=== PATIENT | male | born 1980 | race Caucasian/White ===

== ENCOUNTER 2017-01-27 01:48 | Inpatient (IN) | payer OTHER ==
[~2017-01-27] VITALS: Ht 175.3 cm; Wt 93.1 kg
--- NOTE | 2017-01-27 02:07 | NUR ---
PT PRESENTS TO ED WITH C/O BUQ ABD CRAMPING X4 DAYS. PT REPORTS NAUSEA, DENIES V/D/C. PT REPORTS PAIN WORSENING TODAY. PT DENIES ANY FEVERS. RESPIRATIONS EVEN AND UNLABORED. NO ACUTE DISTRESS NOTED. BED IN LOW POSITION. CALL LIGHT WITHIN REACH.
[2017-01-27 02:20] LABS: BASOPHIL % 0.3 % (0-2); PLATELET COUNT 286 x10^3mcL (130-400)
[2017-01-27 02:33] LABS: CALCIUM 9.1 mg/dL (8.5-10.1); CARBON DIOXIDE 25.6 mmol/L (21-32); CHLORIDE SERUM 101 mmol/L (98-107); CREATININE SERUM 0.9 mg/dL (0.7-1.3); GFR1 > 60 mL/min; GLUCOSE SERUM 118 mg/dL (74-106); POTASSIUM SERUM 3.8 mmol/L (3.5-5.1); SODIUM SERUM 137 mmol/L (136-145)
[2017-01-27 02:38] LABS: ALBUMIN 3.8 g/dL (3.4-5.0); ALKALINE PHOSPHATASE 95 U/L (46-116); ALT/SGPT 32 U/L (16-63); AMYLASE 41 U/L (25-115); AST/SGOT 20 U/L (15-37); BILIRUBIN TOTAL 0.58 mg/dL (0.20-1.00); LIPASE 90 IU/L (73-393); TOTAL PROTEIN, SERUM 7.8 g/dL (6.4-8.2)
--- NOTE | 2017-01-27 05:00 | NUR ---
PER DR. PERLA, NO BLOOD CULTURES ORDERED.
--- NOTE | 2017-01-27 05:43 | NUR ---
PT SLEEPING IN BED, EASILY AROUSABLE TO VERBAL STIMULI. RESPIRATIONS EVEN AND UNLABORED. NO ACUTE DISTRESS NOTED. BED IN LOW POSITION. CALL LIGHT WITHIN REACH.
--- NOTE | 2017-01-27 06:05 | NUR ---
REPORT GIVEN TO JONAH NAVAS.
[2017-01-27 06:30] LABS: PHOSPHOROUS 4.3 mg/dL (2.5-4.9)
--- NOTE | 2017-01-27 06:31 | NUR ---
RECEIVED PATIENT FROM ER AWAKE, ALERT AND ORIENTED WITH NO C/O PAIN THIS TIME, PT MEDICATED EARLIER IN ER WITH MORPHINE 2MG IVP. 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 KEPT IN COMFORT AND ORIENTED TO ROOM AND DEVICES. TELE# 22,SB ON MONITOR. WILL ENDORSE CONTINOUS CARE TO INCOMING AM NURSE.
[2017-01-27 07:44] VITALS: BP 134/77
--- NOTE | 2017-01-27 08:00 | NUR ---
PT A/O X4, DEMIES SOB OR CP. PT STATES PAIN IS 7/10 TO ABD WILL MEDICATE ACCORDING TO MAR. BRP, STRONG STEADY GAIT. BOWEL TONES ACTIVE SKIN CDI. IV PATENT. PT ORIENTED TO ROOM, CALL LIGHT PLACED IN REACH.
--- NOTE | 2017-01-27 08:30 | NUR ---
PT OFF THE FLOOR IN PROCEDURE.
[2017-01-27 08:59] LABS: T3 TOTAL 1.45 ng/mL
--- NOTE | 2017-01-27 10:50 | NUR ---
PT OFF THE FLOOR IN PROCEDURE.
[2017-01-27 11:08] LABS: CHOLESTEROL/HDL RATIO 4.4
[2017-01-27 11:16] LABS: FREE T4 1.15 ng/dL (0.76-1.46); FREE THYROXINE INDEX 3.4 ug/dL (1.4-4.5); T4(THYROXINE) 9.7 ug/dL (4.7-13.3)
--- NOTE | 2017-01-27 11:36 | NUR ---
PT BACK ON FLOOR VS STABLE, PT STATES PAIN IS AT A TOLERABLE LEVEL AT THIS TIME. WILL CONTINUE TO MONITOR. DRESSIGN CDI.
--- NOTE | 2017-01-27 12:15 | NUR ---
PT RESTIGN IN BED DENIES PAIN AT THIS TIME, NO SIGNS OF DISTRESS CALL LIGHT IN REACH WILL CONTINUE TO MONITOR.
[2017-01-27 13:34] VITALS: BP 114/70
--- NOTE | 2017-01-27 15:28 | NUR ---
PT RESTING IN BED VS STABLE, DRESSINGS CDI, FAMILY AT BEDISDE, CALL LIGHT IN REACH WILL CONTINUE TO MONITOR.
[2017-01-27 17:31] VITALS: BP 114/68
--- NOTE | 2017-01-27 19:15 | NUR ---
PT A/O X4, ON TELE #22, NSR, DENIES CHEST PAIN AT THIS TIME. PULSES PALPABLE, NO EDEMA NOTED. SCDs IN PLACE. BREATHING IS EVEN AND UNLABORED, LUNG SOUNDS ARE CLEAR, DENIES SOB. ABD IS SOFT AND FLAT. PT REPORTS TO PASSING GAS, BUT DENIES HAVING A BM TODAY. BRP. SKIN IS INTACT WITH THREE BANDAIDS NOTED TO ABD. DRIED BLOOD NOTED TO ONE OF THE BANDAIDS, NO ACTIVE BLEEDING OBSERVED. PT REPORTS THE PAIN MEDICINE IS EFFECT; ADMITS TO MINIMAL, BUT TOLERABLE PAIN. IVF INFUSING WELL TO LAC. BED IN LOWEST SETTING, SIDE RAILS UP X2, CALL LIGHT WITHIN REACH. WILL CONTINUE TO MONITOR.
[2017-01-27 20:36] LABS: microscopic required? NO
[2017-01-27 20:41] LABS: urine erythrocyte NEGATIVE (NEGATIVE)
[2017-01-27 21:49] VITALS: BP 104/69
--- NOTE | 2017-01-28 01:10 | NUR ---
PT IS SLEEPING AT THIS TIME. BREATHING IS EVEN AND UNLABORED. NO RESP DISTRESS NOTED, NO SIGNS OF PAIN OBSERVED. IVF INFUSING WELL TO THE LAC. WILL CONTINUE TO MONITOR.
[2017-01-28 05:43] VITALS: BP 108/71
--- NOTE | 2017-01-28 06:26 | NUR ---
PT SLEPT WELL THROUGHOUT THE NIGHT, BUT WAS EASILY AROUSABLE. NO RESPIRATORY DISTRESS OBSERVED. PT ADMITS TO 3/10 ABD PAIN, BUT DECLINES PAIN MEDS AT THIS TIME. NO ACTIVE BLEEDING NOTED TO INCISION SITE. ALL NEEDS MET. IVF INFUSING WELL TO LAC. WILL ENDORSE CARE TO AM NURSE.
--- NOTE | 2017-01-28 07:20 | NUR ---
PT AWAKE ALERT AD ORIENTED X4, ABLE TO MAKE NEEDS KNOWN. PT PLACED IN SEMI FOWLERS PER DRS ORDERS. TELE 22. PULSES EQUAL BILATERAL NO EDEMA NOTED. LUNGS CTA. BOWEL TONES ACTIVE DRESSING TO ABD CDI. BRP, STEADY GAIT. PT STATES PAIN IS AT A TOLERABLE LEVEL. IV TO THE LAC CDI. PT IS CALM AND COOPERATIVE WITH CARE. CALL LIGHT IN REACH WILL CONTINUE TO MONITOR.
[2017-01-28 09:05] LABS: BASOPHIL % 0.2 % (0-2); PLATELET COUNT 296 x10^3mcL (130-400); RED CELL DISTRIBUTION WIDTH 14.4 % (11.5-14.5)
[2017-01-28 09:15] LABS: CALCIUM 8.7 mg/dL (8.5-10.1); CARBON DIOXIDE 25.4 mmol/L (21-32); CHLORIDE SERUM 101 mmol/L (98-107); CREATININE SERUM 0.8 mg/dL (0.7-1.3); GFR1 > 60 mL/min; GLUCOSE SERUM 120 mg/dL (74-106); MAGNESIUM 2.1 mg/dL (1.8-2.4); PHOSPHOROUS 2.5 mg/dL (2.5-4.9); SODIUM SERUM 136 mmol/L (136-145)
[2017-01-28 10:11] VITALS: BP 137/78
--- NOTE | 2017-01-28 10:15 | NUR ---
PT RESTING IN BED, STATES PAIN IS STARTING TO GET WORSE, MEDICATED ACCORDING TO SARA, WILL REASSESS.
--- NOTE | 2017-01-28 12:00 | NUR ---
PT UP OOB STATES PAIN IS AT A TOLERABLE LEVEL, STEADY GAIT WILL CONTINUE TO MONITOR.
--- NOTE | 2017-01-28 13:06 | NUR ---
PT RESTING IN BED ABLE TO MAKE NEEDS KNOWN, NO SIGNS OF DISTRESS CALL LIGHT IN REACH WILL CONTINUE TO MONITOR.
--- NOTE | 2017-01-28 15:49 | NUR ---
PT RESTING IN BED NO SIGNS OF DISTRESS CALL LIGHT IN REACH [facility] OTNINUE TO MONITOR.
--- NOTE | 2017-01-28 18:22 | NUR ---
REPORT CALLED AND GIVEN TO LÓPEZ AT [facility]. PT MADE AWARE OF TRANSFER.
[2017-01-28 18:58] VITALS: BP 117/77
[2017-01-28] MEDS ORDERED: Cipro IV ×2 (19:13→19:15)
[2017-01-28] MEDS ORDERED: metronidazole IV ×2 (19:13→19:15)
[2017-01-28 19:59] VITALS: BP 117/77
[2017-01-28] MEDS ORDERED: NORCO1 TA2 PO (20:31)
[2017-01-28] MEDS ORDERED: ZOF4 PO (20:32)
[2017-01-28] MEDS ORDERED: COLACE100 MG PO (20:32)
[2017-01-28] MEDS ORDERED: LIPI10 PO (20:33)
--- NOTE | 2017-01-28 21:43 | NUR ---
[facility] TRANSPORTATION IS HERE, REPORT GIVEN TO [facility] STAFF, PT WITH NO DISTRESS NOTED, [facility] IS AWARE OF PT WILL ARRIVE WITHIN 15 MINS.
== END 2017-01-28 21:40 | disposition short-term general hospital (02) | DRG 340 ==
LOC: ED 01:48 → DU 05:31
PROVIDERS: Emergency Medicine; Surgery; ADMIT Family Medicine
PROC: 0DTJ4ZZ Resection of Appendix, Percutaneous Endoscopic Approach (ICD-10-PCS; principal; 2017-01-27 09:00)
DX: K35.2 Acute appendicitis with generalized peritonitis (principal); I10 Essential (primary) hypertension; E78.5 Hyperlipidemia, unspecified; Z68.30 Body mass index [BMI] 30.0-30.9, adult
CPT/HCPCS: 82962; 84439; 94150; J0330; J0690; J0694; J0744; J2175; J2250; J2270; J2405; J2704; J3010; J3490; J7030; J7120; Q0092; Q0162